=== PATIENT | female | born 2000 | race Caucasian/White ===

== ENCOUNTER 2024-11-17 10:31 | Emergency (ER) | payer OTHER ==
[2024-11-17] MEDS ORDERED: Ketorolac Tromethamine 30 MG (1 mL) VIAL ONE (11:23)
[2024-11-17] MEDS ORDERED: Orphenadrine Citrate 60 MG/2 ML VIAL ONE ×2 (11:23→11:24)
== END 2024-11-17 13:20 | disposition home or self-care (01) ==
LOC: MADERS 10:31
DX: M62.830 Muscle spasm of back (principal)
CPT/HCPCS: 72040; 96372; 99283; J1885; J2360